=== PATIENT | female | born 1935 | race Caucasian/White ===

== ENCOUNTER → 2018-02-10 | Outpatient (CLI) | payer MEDICARE | LOC: MAMMO 09:45 | PROVIDERS: ATTEND Family Medicine | DX: Z12.31 Encounter for screening mammogram for malignant neoplasm of breast (principal) | CPT/HCPCS: 77067 ==

== ENCOUNTER 2019-12-01 14:27 | Emergency (ER) | payer MEDICARE ==
[~2019-12-01] VITALS: Ht 149.9 cm; Wt 52.8 kg
--- OUTSIDE RECORDS SUMMARY | 2019-12-01 14:30 | XMS REPORT ---
Author Author [facility] t Organization [facility] Address [address] [place] [address] Phone Unavailable Care Team Providers Care Green Tire Inspector Name Role Phone Asked, Pcp No PCP Unavailable OBINNA CARMONA Unavailable Problems Condition Name Condition Details Condition Category Status Onset Date Resolution Date Last Treatment Date Treating Clinician Comments Source Hyperlipidemia Hyperlipidemia Disease Active 2016-10-15 00:00:00 Mairo Zhang Menopausal symptom Menopausal symptom Disease Active 2016-10-15 00:00:0 0 Mario Zhang Hypothyroidism Hypothyroidism Disease Active 2016-10-15 00:00:00 Mario Zhang Allergies, Adverse Reactions, Alerts Allergy Name Allergy Type Status Severity Reaction(s) Onset Date Inacti ve Date Treating Clinician Comments Source Penicillins Propensity to adverse reactions to drug Active Mario Zhang Sulfa (Sulfonamide Antibiotics) Propensity to adverse reactions to drug Active Mario Gonzalez ist Family History Family Member Diagnosis Comments Start Date Stop Date Source Natural father Heart disease Mario Zhang Natural mother Heart disease Mario Zhang Social History Social Habit Start Date Stop Date Quantity Comments Source Sex Assigned At [facility] luc[facility]jessica Zhang Alcohol intake 2016-10-15 00:00:00 2016-10-15 00:00:00 Current drinker of alcohol (finding) Mario Zhang Smoking Status Start Date Stop Date Source Never smoker Mario davis Medications Ordered Medication Name Filled Medication Name Start Date Stop Da te Current Medication? Ordering Clinician Indication Dosage Frequency Signature (SIG) Comments Components Source estradiol (CLIMARA) 0.1 mg/24 hr 2017-10-19 00:00:00 Yes [id number] .1mg Q7D Place 1 patch (0.1 mg total) on the skin once a week. Mario Zhang doxycycline (VIBRAMYCIN) 100 MG capsule 2016-07-29 00:00:00 Yes TAKE ONE (1) CAPSULE(S) BY MOUTH TWICE A DAY FOR INFECTION. Mario Zhang SYNTHROID 112 mcg tablet 2016-07-14 00:00:00 Yes TAKE ONE (1) TABLET(S) BY MOUTH DAILY. Mario Gonzalez ist Procedures This patient has no known procedures. Plan of Care Planned Activity Planned Date Details Comments Source Future Scheduled Test 2020-02-16 00:00:00 INFLUENZA VACCINE [code = INFLUENZA VACCINE] Mario Zhang Future Scheduled Test 2000-01-24 00:00:00 65+ PNEUMOCOCCAL V ACCINE (1 of 2 - PCV13) [code = 65+ PNEUMOCOCCAL VACCINE (1 of 2 - PCV13)] Mario Zhang Future Scheduled Test 1985 00:00:00 SHINGLES VACCINES (#1) [code = SHINGLES VACCINES (#1)] Mario Zhang Results Test Description Test Time Test Comments Results Result Comments Source MAMMOGRAPHY DIGITAL SCR BILAT 2018-02-10 10:35:00 [place] [address] Patient Name: NISHA BYRNES MR #: [id number] : 1935 Age/Sex: 83/F Req #: [id number] Adm Physician: Ordered by: OBINNA CARMONA MD Report #: [id number] Location: MAMMO Room/Bed: Procedure: [id number] MG/MAMMOGRAPHY DIGITAL SCR BILAT Exam Date: 02/10/18 Exam Time: 1037 REPORT STATUS: Signed #[id number] - [id number] #BILATERAL DIGITAL SCREENING MAMMOGRAM WITH CAD: 02/10/2018 CLINICAL: Routine screening. No prior exams were available for comparison. Current study contains 4 films. The tissue of both breasts is predominantly fatty. Current study was also evaluated with a Computer Aided Detection (CAD) system. There are benign vascular calcifications and scattered calcifications in both breasts. No significant masses, calcifications, or other findings are seen in either breast. IMPRESSION: BENIGN There is no mammographic evidence of malignancy. A 1 year screening mammogram is recommended. The patient will be notified by letter of the results. Steven Maynard Jr., D.O. cw/:03/02/2018 07:45:40 Test Desk Supervisor: Loni TYSON)(Jax), [facility] letter sent: Normal Exam Mammogram BI-RADS: 2 Benign Dictated By: STEVEN MAYNARD DO 4 Transcribed By: KELLY on 03/02/18744 COPY TO: OBINNA CARMONA MD
--- OUTSIDE RECORDS SUMMARY | 2019-12-01 14:30 | XMS REPORT | Clinical Summary ---
Author Author [facility] Organization [facility] Address Unknown Phone Unavailable Care Team Providers Care Mixer Lever Operator Name Role Phone Asked, No Pcp PCP Unavailable Allergies Comments Active Allergy Reactions Severity Noted Date Penicillins Sulfa (Sulfonamide Antibiotics) Medications End Date Status Medication Sig Dispensed Refills Start Date Active doxycycline (VIBRAMYCIN) TAKE ONE (1) 1 07/29 100 MG capsule CAPSULE(S) BY 7 MOUTH TWICE A DAY FOR INFECTION. Active SYNTHROID 112 mcg tablet TAKE ONE (1) 3 07/14 TABLET(S) BY 6 MOUTH DAILY. Active estradiol (CLIMARA) 0.1 Place 1 patch 12 patch 3 mg/24 hrIndications: (0.1 mg 8 Postmenopausal HRT total) on the (hormone replacement skin once a therapy) week. Active Problems Problem Noted Date Hyperlipidemia 10/15/2016 Menopausal symptom 10/15/2016 Hypothyroidism 10/15/2016 Family History Medical History Relation Name Comments Heart disease Father Heart disease Mother Relation Name Status Comments Father Mother Social History Date Tobacco Use Types Packs/Day Years Used Never Smoker Tobacco Cessation: Counseling Given: No Drinks/Week oz/Week Comments Alcohol Use Yes Sex Assigned at Date Recorded Not on file Industry Job Start Date Occupation Not on file Not on file Not on file Travel End Travel History Travel Start No recent travel history available. Last Filed Vital Signs Not on file Plan of Treatment Health Maintenance Due Date Last Done Comments SHINGLES VACCINES (#1) 1985 65+ PNEUMOCOCCAL VACCINE 01/24/2000 (1 of 2 - PCV13) INFLUENZA VACCINE 02/16/2020 Results Not on fileafter 11/30/2018 Insurance Type Payer Benefit Subscriber ID Effective Phone Address Plan / Dates Group Medicare MEDICARE MEDICARE xxxxxxxxxx 2000-P [place]OD[place], PART A AND resent [place] B Commercial AARP AARP xxxxxxxxxxx [id number] [place] [phone] Advance Directives For more information, please contact: [phone] Patient Biometrics Consultant Explanation Type Date Recorded Advance Directives, Living Will and Medical Power of Chiropractic Practice Manager
[2019-12-01] MEDS ORDERED: METHYLPREDNISOLONE SOD SUCC 125 MG/2ML VIAL IM STA (14:50)
[2019-12-01] MEDS ORDERED: DIPHENHYDRAMINE HCL 25 MG CAP PO ONE (15:00)
[2019-12-01] MEDS ORDERED: FAMOTIDINE 20 MG TAB PO ONE (15:00)
[2019-12-01] MEDS ORDERED: METHYLPREDNISOLONE SOD SUCC 125 MG/2ML VIAL ONE (15:07)
[2019-12-01] MEDS ORDERED: FAMOTIDINE 20 MG TAB ONE (15:07)
[2019-12-01] MEDS ORDERED: DIPHENHYDRAMINE HCL 25 MG CAP ONE (15:07)
--- NOTE | 2019-12-01 15:13 | Emergency Department Note ---
History of Present Illnes History of Present Illness Chief Complaint: facial Skin Rash History of Present Illness This is a 84 year old female. was doing well prior to this. then 1 day ago facial swelling/ itchy rash. no swollen tongue/throat. no other complaints Historian: Patient, Family Member (daughter) Arrival Mode: Car History limited by: condition of the patient Supervisor Spinning Required: No Onset (how long ago): day(s) (1) Location: face Quality: red rash Radiation: non-radiation Severity: moderate Onset quality: gradual Duration (how long): day(s) (1) Timing of current episode: constant Progression: worsening Chronicity: new Context: recent illness, recent surgery, recent immobilization, recent travel, trauma/injury, new medications, hx of DVT/PE, non-compliance w/ medications Relieving factors: none Exacerbating factors: none Associated symptoms: denies other symptoms, rash Treatments prior to arrival: none Risk factors: none Past Medical/Family History Physician Review I have reviewed the patient's past medical and family history. Any updates have been documented here. Past Medical History Recent Fever: No Clinical Suspicion of Infectio: No New/Unexplained Change in Ment: No Past Medical History: None Other Medical History: dementia Past Surgical History: Hysterectomy Social History Smoking Cessation: Never Smoker Counseling Performed: No Alcohol Use: None Any Illegal Drug Use: No TB Exposure/Symptoms: No Physically hurt or threatened: No Family History Family history of heart diseas: No Other Any Pre-Existing Lines (PICC,: No Is patient up to date on immun: No Review of Systems Review of Systems Constitutional: no symptoms EENTM: no symptoms Cardiovascular: no symptoms Respiratory: no symptoms Gastrointestinal: no symptoms Genitourinary: no symptoms Musculoskeletal: no symptoms Neurological: no symptoms Psychological: no symptoms Endocrine: no symptoms Hematological/Lymphatic: no symptoms Review of other systems All other systems reviewed and negative. Physical Exam Related Data Allergies: Coded Allergies: Penicillins (Verified Allergy, Unknown, 12/01/19) Sulfa (Sulfonamide Antibiotics) (Verified Allergy, Unknown, 12/01/19) Vital signs reviewed: Yes Physical Exam CONSTITUTIONAL Constitutional: well-developed, well-nourished HENT HENT: normocephalic, atraumatic, oropharynx clear/moist, nose normal HENT L/R: left ext ear normal, right ext ear normal EYES Eyes: PERRL, conjunctivae normal NECK Neck: ROM normal, supple PULMONARY Pulmonary: effort normal, breath sounds normal CARDIOVASCULAR Cardiovascular: regular rhythm, heart sounds normal, capillary refill normal, normal rate GASTROINTESTINAL Abdominal: soft, nontender, bowel sounds normal GENITOURINARY Genitourinary: exam deferred SKIN Skin: warm, dry, erythema, rash (bilateral facial erythematous blanching nontender rash bilateral cheeks/forehead) MUSCULOSKELETAL Musculoskeletal: ROM normal NEUROLOGICAL Neurological: alert, oriented x 3, no gross motor or sensory deficits PSYCHOLOGICAL Psychological: mood/affect normal, judgement normal Critical Care Time Subsequent provider I assumed direction of critical care for this patient from another provider of my specialty. Assessment & Plan Assessment & Plan Problems: (1) Allergic reaction Assessment & Plan rxs for benadryl, pepcid, prednisone Depart Disposition: HOME, SELF-CARE Medications in the ED Diphenhydramine HCl 25 mg ONCE ONCE PO ; Start 12/01/19 at 15:00; Stop 12/01/19 at 15:01; Status UNV Famotidine 20 mg ONCE ONCE PO ; Start 12/01/19 at 15:00; Stop 12/01/19 at 15:01; Status UNV Methylprednisolone Sodium Succinate 125 mg ONCE STAT IM ; Start 12/01/19 at 14:50; Stop 12/01/19 at 14:51 MANJU ELLIS December 01, 2019 15:13
[2019-12-01 15:15] VITALS: BP 179/78
== END 2019-12-01 15:27 | disposition home or self-care (01) ==
LOC: FSED 14:27
DX: R21 Rash and other nonspecific skin eruption (principal); T78.40XA Allergy, unspecified, initial encounter
CPT/HCPCS: 96372; 99283